=== PATIENT | female | born 1985 | race Caucasian/White ===

== ENCOUNTER 2017-03-25 03:07 | Emergency (ER) | payer OTHER ==
[~2017-03-25 03:07] MED LIST: AMOXICILLIN500 M1 PO; CORTISPORI10 ML OTIC AD; LORTAB 5/500 TA1 TA1 PO; MACROBID100 MG PO; NO MEDICATIONS
== END 2017-03-25 03:09 | disposition home or self-care (01) ==
LOC: SED 03:07
DX: H66.91 Otitis media, unspecified, right ear (principal); F17.200 Nicotine dependence, unspecified, uncomplicated
CPT/HCPCS: 99282